=== PATIENT | female | born 1985 | race Two or more races ===

== ENCOUNTER 2023-10-09 00:21 | Emergency (ER) | payer SELFPAY ==
[~2023-10-09] VITALS: Ht 157.5 cm; Wt 61.8 kg
[2023-10-09 02:55] VITALS: BP 119/77; PULSE 75; RESP 16; TEMP 97.3
== END 2023-10-09 03:15 | disposition home or self-care (01) ==
LOC: EMS 00:24
DX: T71.9XXA Asphyxiation due to unspecified cause, initial encounter (principal); Y08.89XA Assault by other specified means, initial encounter; Y93.89 Activity, other specified; Y92.89 Other specified places as the place of occurrence of the external cause; Y99.8 Other external cause status
CPT/HCPCS: 99283; Z7502

== ENCOUNTER 2025-03-31 22:55 | Emergency (ER) | payer OTHER ==
[~2025-03-31] VITALS: Ht 157.5 cm; Wt 62.0 kg
[2025-03-31 23:01] VITALS: BP 127/97; PULSE 97; RESP 18; TEMP 98.6; O2SAT 99
[2025-04-01 01:23] LABS: APPEARANCE,URINE CLEAR (CLEAR); GLUCOSE, URINE (UA) NEGATIVE (NEGATIVE); LEUKOCYTE ESTERASE ,URINE NEGATIVE (NEGATIVE); NITRATE,URINE NEGATIVE (NEGATIVE); OCCULT BLOOD,URINE NEGATIVE (NEGATIVE); SPECIFIC GRAVITIY, URINE 1.025 (1.003-1.030)
== END 2025-04-01 02:08 | disposition home or self-care (01) ==
LOC: EMS 23:10
DX: K59.00 Constipation, unspecified (principal); R10.32 Left lower quadrant pain
CPT/HCPCS: 74018; 81003; 84703; 99284